=== PATIENT | female | born 1985 | race Caucasian/White ===

== ENCOUNTER 2021-12-09 08:39 | Day surgery (SDC) | payer BC ==
[~2021-12-09 08:39] MED LIST: TRIAMCINOLONE ACETONIDE 40 MG/ML 1 ML VIAL INTRABURSA STA
[2021-12-09 09:19] VITALS: TEMP 98.3
[2021-12-09 10:49] VITALS: RESP 18
[2021-12-09 10:54] VITALS: BP 111/68; PULSE 48
--- NOTE | 2021-12-09 14:51 | US ---
EXAMINATION TYPE: US guided asp/inj major joint, right Ellsworth's cyst DATE OF EXAM: 12/09/2021 Comparison: None Clinical History: 36-year-old female with pain, M71.21 SYNOVIAL CYST OF POPLITEAL SPACE [ELLSWORTH], R Procedure: 1. Ultrasound of the right popliteal fossa 2. Aspiration of the Ellsworth's cyst with ultrasound guidance. 3. Injection of Kenalog with ultrasound guidance. Technique: The procedure, risks, and alternatives, were discussed with the patient, who requested christine t we proceed. The consent form was signed, and teach-back occurred. The site/side of the procedure wa s marked with a line with participation by the patient. The accompanying paperwork was verified for c onsistency. A directed history and physical exam was performed prior to the procedure. Medication rec onciliation was performed by ancillary personnel. A critical pause was performed with assisting ghazala oliver just prior to the procedure and the patient's identity was confirmed using 2 identifiers. Imagin g guidance was utilized to select the precise skin entry point just prior to the procedure. Initial ultrasound shows a large, simple Ellsworth's cyst measuring 6.2 x 1.4 cm. The right popliteal fossa was prepped and draped in the usual sterile fashion and local 1% lidocaine anesthesia was instilled. The procedure was performed with the patient in prone position. Under ultrasound guidance and trocar technique, a 7 cm One-Step needle was introduced into right-side d Ellsworth's cyst. Ultrasound confirmed the position of the needle tip. Under ultrasound surveillance, a spiration yielded 35 mL of normal yellow, clear synovial fluid. The Ellsworth's cyst collapsed completely . Subsequently, 1 mL of Kenalog-40 was injected into the collapsed space. As the catheter was withdra wn, total of 3 mL 1% lidocaine was injected into the collapsed space and infiltrated along the cathet er tract. The patient tolerated the procedure well. There were no immediate complications. After the procedure, the patient's condition was unchanged. Es timated blood loss was minimal. The patient was instructed on routine postprocedure precautions, incl uding protecting the area to prevent infection. IMPRESSION: Ultrasound guided right Ellsworth's cyst aspiration and steroid injection. The cyst collapsed completely and 35 mL of normal synovial fluid was discarded. No immediate complication.
== END 2021-12-09 10:30 | disposition home or self-care (01) ==
LOC: RADPROMAIN 08:39
PROVIDERS: ATTEND Orthopaedic Surgery
DX: M71.21 Synovial cyst of popliteal space [Baker], right knee (principal)
CPT/HCPCS: 20611; J3301

== ENCOUNTER → 2023-06-27 | Outpatient (CLI) | payer BC ==
--- NOTE | 2023-06-27 14:24 | MM ---
Reason for Exam: Screening (asymptomatic). Patient History: Menarche at age 10. Patient has no children. Currently using Hormonal Contraceptives, starting at age 18. Maternal grandmother had breast cancer. Mother had breast cancer, age 60. Risk Values: Marita 5 year model risk: 1.0%. NCI Lifetime model risk: 18.9%. Tissue Density: The breasts are heterogeneously dense, which may obscure small masses. Findings: Analyzed By CAD. Right breast: There is no suspicious group of microcalcifications or new suspicious mass. Left breast: There is no suspicious group of microcalcifications or new suspicious mass. Overall Assessment: Negative, BI-RAD 1 Management: Screening Mammogram of both breasts in [address] [facility] will attempt to contact patient to return for supplemental views and ultrasound if indicated. Patient should continue monthly self-breast exams. A clinical breast exam by your physician is recommended on an annual basis. This exam should not preclude additional follow-up of suspicious palpable abnormalities. Note on Marita scores and lifetime risk: 1. A Marita score greater than 3% is considered moderate risk. If this is the case, consider specialist referral to assess eligibility for a risk reducing agent. 2. If overall lifetime risk for the development of breast cancer is 20% or higher, the patient may qualify for future screening with alternating mammogram and breast MRI. Electronically signed and approved by: Stanley Vo DO
== END | disposition home or self-care (01) ==
LOC: RADMAMWWP 06:47
PROVIDERS: ATTEND Obstetrics & Gynecology
DX: Z12.31 Encounter for screening mammogram for malignant neoplasm of breast (principal); Z80.3 Family history of malignant neoplasm of breast
CPT/HCPCS: 77063; 77067

== ENCOUNTER → 2024-07-30 | Outpatient (CLI) | payer BC ==
--- NOTE | 2024-07-30 10:56 | MM ---
Reason for Exam: Screening (asymptomatic). Last mammogram was performed 1 year(s) and 1 month(s) ago. Patient History: Menarche at age 10. Patient has no children. Premenopausal. Currently using Hormonal Contraceptives, starting at age 18. Maternal grandmother had breast cancer. Mother had breast cancer, age 60. Risk Values: Marita 5 year model risk: 1.1%. NCI Lifetime model risk: 18.8%. Prior Study Comparison: 06/27/2023 Bilateral MG 3D screening mammo w/cad, [facility]. Tissue Density: The breasts are heterogeneously dense, which may obscure small masses. Findings: Analyzed By CAD. Right breast: There is no suspicious group of microcalcifications or new suspicious mass. Left breast: There is no suspicious group of microcalcifications or new suspicious mass. Overall Assessment: Negative, BI-RAD 1 Management: Screening Mammogram of both breasts in [address] [facility] will attempt to contact patient to return for supplemental views and ultrasound if indicated. Patient should continue monthly self-breast exams. A clinical breast exam by your physician is recommended on an annual basis. This exam should not preclude additional follow-up of suspicious palpable abnormalities. Note on Marita scores and lifetime risk: 1. A Marita score greater than 3% is considered moderate risk. If this is the case, consider specialist referral to assess eligibility for a risk reducing agent. 2. If overall lifetime risk for the development of breast cancer is 20% or higher, the patient may qualify for future screening with alternating mammogram and breast MRI. [facility], , 07/30/2024 10:43 AM. Electronically signed and approved by: Stanley Vo DO
== END | disposition home or self-care (01) ==
LOC: RADMAMWWP 10:01
PROVIDERS: ATTEND Obstetrics & Gynecology
DX: Z12.31 Encounter for screening mammogram for malignant neoplasm of breast (principal); R92.333 Mammographic heterogeneous density, bilateral breasts; Z80.3 Family history of malignant neoplasm of breast; Z79.3 Long term (current) use of hormonal contraceptives
CPT/HCPCS: 77063; 77067

== ENCOUNTER → 2024-07-31 | Outpatient (CLI) | payer BC ==
[2024-07-31 10:49] LABS: Chol/HDL Ratio 2.07 Ratio; LDL Cholesterol,Calculated 74.4 mg/dL (0.0-131.0)
== END | disposition home or self-care (01) ==
LOC: LABWHC1 07:31
PROVIDERS: ATTEND Nurse Practitioner Family
DX: Z13.220 Encounter for screening for lipoid disorders (principal); Z13.228 Encounter for screening for other metabolic disorders; Z13.29 Encounter for screening for other suspected endocrine disorder; N95.9 Unspecified menopausal and perimenopausal disorder; E03.9 Hypothyroidism, unspecified; E55.9 Vitamin D deficiency, unspecified; R63.5 Abnormal weight gain; H42 Glaucoma in diseases classified elsewhere
CPT/HCPCS: 36415; 80061; 84270